=== PATIENT | male | born 1965 | race Caucasian/White ===

== ENCOUNTER 2017-03-08 12:25 | Emergency (ER) | payer BC ==
[~2017-03-08] VITALS: Ht 167.6 cm; Wt 86.5 kg
[2017-03-08 12:28] VITALS: Ht 167.6 cm; Wt 86.5 kg
[2017-03-08] MEDS ORDERED: ACET500C5 PO (13:41)
[2017-03-08] MEDS ORDERED: MECL12.574 PO (13:41)
--- NOTE | 2017-03-08 14:02 | ERD ---
ER Documentation Chief Complaint Date/Time DATE: 03/08/17 TIME: 14:00 Chief Complaint HEADACHE AND EAR PAIN X2 WEEKS, WAS SEEN IN URGENT CARE X1WEEK GIVEN ABX HPI 51-year-old male patient with a past medical history of hyperlipidemia presents to the ED complaining of ear pain that started 2 weeks ago and was diagnosed with an ear infection by his primary care physician. States that he finished and completed the course of antibiotics, amoxicillin. Reports that the pain radiates to the back of his head. States that when he turns and twists his head , he feels some dizziness. States that he has been taking ibuprofen without relief. Denies any chest pain, shortness of breath, wheezing, fever, chills, neck stiffness. Denies any head injuries or neck injuries. Denies any loss of consciousness. Denies any seizures. ROS All systems reviewed and are negative except as per history of present illness. Medications Home Meds Active Scripts Acetaminophen* (Tylophen*) 500 Mg Capsule, 1 CAP PO Q6H Y for PAIN AND OR ELEVATED TEMP, #20 CAP Prov:INDRA DAO PA-C 03/08/17 Meclizine Hcl* (Antivert*) 12.5 Mg Tab, 12.5 MG PO Q6H Y for DIZZINESS, #20 TAB Prov:INDRA DAO PA-C 03/08/17 PMhx/Soc Medical and Surgical Hx: pt denies Medical Hx, pt denies Surgical Hx Hx Alcohol Use: No Hx Substance Use: No Hx Tobacco Use: No Smoking Status: Never smoker Physical Exam Vitals Vital Signs Date Time Temp Pulse Resp B/P Pulse Ox O2 Delivery O2 Flow Rate FiO2 03/08/17 12:28 98.9 79 20 153/98 98 Physical Exam Const: [id number], well-nourished. In no acute distress. Head: Atraumatic, normocephalic Eyes: Normal Conjunctiva without injection. No purulent discharge. PERRLA. EOMI ENT: Normal external ear. Ear canal without erythema. Tympanic membrane pearly lerner without effusion or bulging. Nasal canal clear with normal turbinates. Moist oropharynx without tonsillar exudates. Non-erythematous pharynx. Uvula midline. No drooling. No trismus. Neck: No cervical midline tenderness. Full range of motion. No meningismus. No cervical lymphadenopathy. No JVD. Resp: Clear to auscultation bilaterally. No wheezing, rhonchi, rales, or crackles. No accessory muscle use. No retractions. Cardio: Regular rate and rhythm. No murmurs, rubs or gallops. Skin: Normal skin turgor. No petechiae or rashes Ext: No cyanosis, or edema. Distal pulses intact bilaterally. Neur: Awake and alert. Normal gait. Normal coordination. Cranial Nerves II- VII intact. Normal finger to nose. Muscle strength 5/5. Sensation intact. Dizzy upon turning his head. Psych: Normal Mood and Affect Procedures/MDM This is a 51-year-old male patient with a past nuchal history of hyperlipidemia presents to the ED complaining of ear pain that started 2 weeks ago and has been taking antibiotics. Patient is afebrile and nontoxic-appearing. TMs are pearly lerner with no signs of infection. Patient could likely have positional vertigo. Patient was instructed to follow-up with an ears nose throat specialist for further evaluation and treatment if patient's symptoms do not alleviate with meclizine at home. There is low suspicion for intracranial bleed , subarachnoid hemorrhage, meningitis, TIA, stroke, seizures, or other emergent conditions. Discharge medications: Tylenol, Meclizine Follow up with primary care physician in 1-2 days. Instructed patient to return to the ED sooner for any worsening symptoms. Patient's questions were answered. Patient understood and agreed with discharge plan. Patient discharged stable. Departure Diagnosis: Primary Impression: Headache Headache type: unspecified Headache chronicity pattern: unspecified pattern Intractability: not intractable Qualified Code: R51 - Nonintractable headache, unspecified chronicity pattern, unspecified headache type Additional Impression: Positional vertigo Laterality: unspecified laterality Qualified Code: H81.10 - Positional vertigo, unspecified laterality Condition: Stable Patient Instructions: Self-Care for Headaches, Inner Ear Problems: Causes of Dizziness (Vertigo), Vertigo, Unspecified Referrals: ANITA SLAUGHTER MD,CECILIA CALVILLO,SOFIA GARDNER,HAYDER Deleon MD [facility] YOU HAVE RECEIVED A MEDICAL SCREENING EXAM AND THE RESULTS INDICATE THAT YOU DO NOT HAVE A CONDITION THAT REQUIRES URGENT TREATMENT IN THE EMERGENCY DEPARTMENT. FURTHER EVALUATION AND TREATMENT OF YOUR CONDITION CAN WAIT UNTIL YOU ARE SEEN IN YOUR DOCTORS OFFICE WITHIN THE NEXT 1-2 DAYS. IT IS YOUR RESPONSIBILITY TO MAKE AN APPOINTMENT FOR FOLOW-UP CARE. IF YOU HAVE A PRIMARY DOCTOR --you should call your primary doctor and schedule an appointment IF YOU DO NOT HAVE A PRIMARY DOCTOR YOU CAN CALL OUR PHYSICIAN REFERRAL HOTLINE AT IF YOU CAN NOT AFFORD TO SEE A PHYSICIAN YOU CAN CHOSE FROM THE FOLLOWING [facility] [address] [facility] [address] [facility] [address] [facility] [address] [facility] [address] [facility] [facility] [address] [facility]. [facility] YOU HAVE RECEIVED A MEDICAL SCREENING EXAM AND THE RESULTS INDICATE THAT YOU DO NOT HAVE A CONDITION THAT REQUIRES URGENT TREATMENT IN THE EMERGENCY DEPARTMENT. FURTHER EVALUATION AND TREATMENT OF YOUR CONDITION CAN WAIT UNTIL YOU ARE SEEN IN YOUR DOCTORS OFFICE WITHIN THE NEXT 1-2 DAYS. IT IS YOUR RESPONSIBILITY TO MAKE AN APPOINTMENT FOR FOLOW-UP CARE. IF YOU HAVE A PRIMARY DOCTOR --you should call your primary doctor and schedule and appointment IF YOU DO NOT HAVE A PRIMARY DOCTOR YOU CAN CALL OUR PHYSICIAN REFERRAL HOTLINE AT . IF YOU CAN NOT AFFORD TO SEE A PHYSICIAN YOU CAN CHOSE FROM THE FOLLOWING [facility]: [facility] [address] [place] [address] [facility] [address] [place] [address] [facility] [address] [place] [address] [facility] URGENT CARE/SPECIALTIES Additional Instructions: Call your primary care doctor for an appointment during the 2 days to see an ears nose throat specialist.See the doctor sooner or return here if your condition worsens before your appointment time. INDRA DAO PA-C Mar 08, 2017 14:02
== END 2017-03-08 14:14 | disposition home or self-care (01) ==
LOC: FTE 12:25
DX: R51 Headache (principal); H81.10 Benign paroxysmal vertigo, unspecified ear
CPT/HCPCS: 99283